=== PATIENT | female | born 1990 ===

== ENCOUNTER 2019-04-20 11:02 | Outpatient (CLI) | payer OTHER ==
[2019-04-20 11:27] VITALS: BP 115/66
--- NOTE | 2019-04-20 14:01 | Ultrasound Report ---
ULTRASOUND BIOPHYSICAL PROFILE ULTRASOUND OB LIMITED INDICATION: post dates TECHNIQUE: Transabdominal ultrasound imaging. COMPARISON: None FINDINGS: breathing movement = 2 Gross body movement = 2 tone = 2 Qualitative amniotic fluid volume = 2 Total biophysical score = 8/8 Amniotic fluid index is 8.8 cm. Presentation is cephalic. heart rate is 151 beats per minute. IMPRESSION: biophysical profile equals 8/8. Cephalic presentation. Signer Name: Qasim Song Jr, MD Signed: 04/20/2019 1:56 PM Workstation Name: [id number]
== END 2019-04-20 12:50 | disposition home or self-care (01) ==
LOC: TRG 11:02
PROVIDERS: ATTEND Obstetrics & Gynecology
DX: O47.1 False labor at or after 37 completed weeks of gestation (principal); Z3A.41 41 weeks gestation of pregnancy
CPT/HCPCS: 59025; 76815; 76819

== ENCOUNTER 2019-04-21 12:16 | Outpatient (CLI) | payer OTHER ==
[2019-04-21 13:03] VITALS: BP 113/69
== END 2019-04-21 15:36 | disposition home or self-care (01) ==
LOC: TRG 12:16
PROVIDERS: ATTEND Obstetrics & Gynecology
DX: O47.1 False labor at or after 37 completed weeks of gestation (principal); Z3A.41 41 weeks gestation of pregnancy
CPT/HCPCS: 59025

== ENCOUNTER 2019-04-21 21:08 | Inpatient (IN) | payer OTHER ==
[2019-04-21] MEDS ORDERED: BRETHINE SUB-Q PRN (23:23)
--- NOTE | 2019-04-21 23:31 | History and Physical Report ---
History of Present Illness Date of examination: 04/21/19 Date of admission: 04/21/19 21:08 Chief complaint: Labor History of present illness: 28 year old female presents in active labor. Patient received care at [facility] and records are available. LMP 06/19/18. EDC 04/12/19. significant for the following: chlamydia (treated and cured, DOMINIQUE negative 12/29/18), UTI (treated with Keflex). labs are as follows:A+, antibody screen negative, rubella immune, hepatitis B surface antigen negative, RPR nonreactive, HIV negative, CT positive/negative, GC negative/negative, GBS negative, quad screen negative, glucose challenge WNL. 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 denies: abnormal PAP smear, gonorrhea, hepatitis B, hepatitis C, herpes, HIV, syphilis, trichomonas Family/Genetic History: none Social history: , lives with family, full code. denies: smoking, alcohol abuse, prescription drug abuse, IV drug use - Obstetrical History Expected Date of Delivery: 04/12/19 Actual Gestation: 41 Week(s) 2 Day(s) : 1 Para: 0 Hx # Term Pregnancies: 0 Number of Pregnancies: 0 Spontaneous Abortions: 0 Induced : 0 Number of Living Children: 0 Medications and Allergies Allergies Allergy/AdvReac Type Severity Reaction Status Date / Time No Known Allergies Allergy Verified 04/20/19 11:11 Review of Systems All systems: negative (contractions) - Vital Signs Vital signs: Vital Signs Pulse BP 85 118/71 04/21/19 21:49 04/21/19 21:49 Temp Pulse Resp BP Pulse Ox 75 123/73 04/21/19 23:12 04/21/19 23:12 - Physical Exam Abdomen: Positive: normal appearance, soft. Negative: distention, tenderness, guarding, rigidity Genitourinary (Female): Positive: normal external genitalia, normal perenium. Negative: perineal/vulvar lesions (no lesions seen on careful exam with bright light upon admission) Vagina: Positive: normal moisture Uterus: Positive: enlarged (gravid) Anus/Rectum: Positive: normal perianal skin Extremities: Positive: normal - Obstetrical FHR: category 1 Cervical Dilatation: 4 Cervical Effacement Percentage: 90 station: -3 Uterine Contraction Pattern: Regular Uterine Contraction Intensity: Moderate Results All other labs normal. Assessment and Plan A: at 41 weeks, 2 days gestation. Active labor, late term gestation. GBS negative. P: Admit. Continuous EFM. Anticipate vaginal .
[2019-04-21] MEDS ORDERED: PITOCin/NS 20 UNIT/1000ML DRIP 20 UNITS/1,000 ML BAG IV SCH (23:45)
[2019-04-22 00:25] LABS: Hemoglobin 11.8 gm/dl (10.1-14.3); Mean Corpuscular HGB Conc 33 % (30-34); Mean Corpuscular Volume 91 fl (79-97); Platelet Count 228 K/mm3 (140-440); Red Blood Count 3.97 M/mm3 (3.65-5.03); Red Cell Distribution Width 14.7 % (13.2-15.2)
[2019-04-22] MEDS: SUBLIMAZE IV PRN ×3 (01:11→08:04)
[2019-04-22] MEDS: LACTATED RINGERS 1,000 ML IV SCH ×3 (01:13→09:02)
[2019-04-22] MEDS ORDERED: ZOFRAN IV ONE (08:00)
[2019-04-22] MEDS ORDERED: NACL 0.9% 1000 ML 1,000 ML VG SCH (08:00)
--- NOTE | 2019-04-22 08:04 | Event Note ---
Date: 04/22/19 Patient is awaiting epidural. Cervix is 5-6/95/-1. IUPC and FSE placed. Amnioinfusion ordered due to variable FHR decelerations. Oxygen per face mask at 10 LPM and lateral positioning of patient have been instituted. Patient is receiving IV fluid bolus. FHR baseline is normal and variability is moderate. Uterus palpates soft between contractions.
[2019-04-22] MEDS ORDERED: TYLENOL PO ONE (09:04)
[2019-04-22] MEDS ORDERED: NARCAN 2 MG/2 ML IV PRN (09:08)
--- NOTE | 2019-04-22 09:09 | Anesthesia Consultation ---
Anesthesia Consult and Med Hx Date of service: 04/22/19 - Airway Anesthetic Teeth Evaluation: Good ROM Head & Neck: Adequate Mental/Hyoid Distance: Adequate Mallampati Class: Class II Intubation Access Assessment: Probably Good - Pulmonary Exam CTA: Yes - Cardiac Exam Cardiac Exam: RRR - Pre-Operative Health Status ASA Pre-Surgery Classification: ASA2 Proposed Anesthetic Plan: Epidural - Pulmonary Hx Asthma: No COPD: No Hx Pneumonia: No - Cardiovascular System Hx Hypertension: No - Central Nervous System Hx Seizures: No Hx Psychiatric Problems: No - Endocrine Hx Renal Disease: No Hx End Stage Renal Disease: No Hx Hypothyroidism: No Hx Hyperthyroidism: No - Hematic Hx Anemia: No Hx Sickle Cell Disease: No - Other Systems Hx Alcohol Use: No
--- NOTE | 2019-04-22 09:39 | Event Note ---
Date: 04/22/19 Patient has epidural and is now comfortable. SVE 6-7/100/-1. Pitocin ordered for augmentation of labor. Patient has FSE and IUPC in place. Receiving amnioinfusion. Variable FHR decelerations have resolved.
[2019-04-22] MEDS ORDERED: PITOCin/NS 30 UNIT/500ML 30 UNITS/500 ML BAG IV SCH (10:00)
[2019-04-22] MEDS ORDERED: fentaNYL-BUPIV 2 MCG/ML-0.125% 200 MCG/100 ML BAG EPIDURAL SCH ×2 (10:00→15:00)
[2019-04-22] MEDS ORDERED: AMPICILLIN/NS 2 GM/100 ML 2 GM/100 ML BAG IV ONE (10:00)
--- NOTE | 2019-04-22 11:36 | Event Note ---
Date: 04/22/19 Pitocin turned off due to late FHR decelerations. Moderate variability. SVE unchanged. Informed Dr. Simons that Pitocin was turned off due to late decelerations. Dr. Simons states he wants to perform a section. Informed patient and nurse re: Dr. Simons's decision to perform a section.
[2019-04-22] MEDS ORDERED: PEPCID IV ONE (12:00)
[2019-04-22] MEDS ORDERED: REGLAN IV ONE (12:00)
[2019-04-22] MEDS ORDERED: ANCEF/STERILE WATER 2 GM/20 ML 2 GM/20 ML SYRINGE IV NR (12:00)
[2019-04-22] MEDS ORDERED: PITOCin/NS 20 UNIT/1000ML DRIP 20 UNITS/1,000 ML BAG IV SCH ×2 (12:00→15:00)
[2019-04-22] MEDS ORDERED: LACTATED RINGERS 1,000 ML IV SCH (12:00)
[2019-04-22] MEDS ORDERED: BICITRA PO ONE (12:00)
--- NOTE | 2019-04-22 12:41 | Anesthesia Day of Surgery ---
Anesthesia Day of Surgery - Day of Surgery Patient Examined: Yes Patient H&P Reviewed: Yes Patient is NPO: Yes
[2019-04-22] MEDS ORDERED: WATER FOR IRRIG STERILE IR ONE ×2 (13:20)
[2019-04-22] MEDS ORDERED: NACL 0.9% IR ONE ×2 (13:20)
[2019-04-22] MEDS ORDERED: XYLOCAINE MPF 2% ONE (13:31)
[2019-04-22] MEDS ORDERED: SODIUM BICARBONATE IV ONE (13:31)
[2019-04-22] MEDS ORDERED: ZOFRAN ONE (13:31)
[2019-04-22] MEDS ORDERED: AMPICILLIN/NS 1 GM/50 ML 1 GM/50 ML BAG IV SCH (14:00)
--- NOTE | 2019-04-22 14:12 | Event Note ---
Date: 04/22/19 Saw patient who arrived 13 hours earlier at 3cm and now only 5-6 cm and OP. Fetus showing variable decels. O/E: Large fetus and + lbs. Cervix 100% effaced, 5-6cm, OP at 0-2 station. Pelvis inadequate. IMP: Failure to progress, CPD. Plan: For delivery.
[2019-04-22] MEDS ORDERED: ZOFRAN IV PRN ×2 (14:17→14:26)
[2019-04-22] MEDS ORDERED: TORADOL IV PRN (14:17)
[2019-04-22] MEDS ORDERED: MORPHINE IV PRN (14:17)
[2019-04-22] MEDS ORDERED: TYLENOL PO PRN (14:17)
[2019-04-22] MEDS ORDERED: NARCAN 0.4 MG/1 ML IV PRN ×2 (14:17→14:26)
[2019-04-22] MEDS ORDERED: TUCKS PAD TP PRN (14:17)
[2019-04-22] MEDS ORDERED: LANSINOH TP PRN (14:17)
[2019-04-22] MEDS ORDERED: PHENERGAN PO PRN (14:26)
[2019-04-22] MEDS ORDERED: NUBAIN IV PRN (14:26)
[2019-04-22] MEDS ORDERED: PHENERGAN PR PRN (14:26)
--- NOTE | 2019-04-22 14:26 | Post Anesthesia Evaluation ---
- Post Anesthesia Evaluation Patient Participated: Yes Airway Patent: Yes Stable Respiratory Function: Yes Nausea/Vomiting: No Temp > 96.8F: Yes Pain Manageable: Yes Adequeate Hydration: Yes Anesthesia Complications: No Block Receding Appropriately: Yes
[2019-04-22] MEDS ORDERED: ANCEF/NS 1 GM/50 ML 1 GM/50 ML BAG IV SCH (15:00)
[2019-04-22] MEDS ORDERED: SODIUM CHLORIDE FLUSH SYRINGE 10 ML IV NR (15:00)
--- NOTE | 2019-04-22 15:56 | Operative Report ---
Operative Report Operative Report: Date of surgery: 04/22/2019 Preoperative diagnoses: Failure to progress, large fetus, cephalopelvic disproportion Postoperative diagnoses: The same. Operation: delivery Surgeon:Antolin Simons MD Electric Organ Checker: Barbara Linda CRNA Anesthesia: Spinal block Estimated blood loss: 1000 mL Complications: None Findings: There was a live baby girl in occiput posterior position, weight 9 lbs. 3 oz. in the false pelvis. Both ovaries and tubes were normal. The uterus was an unremarkable gravid structure Procedure in detail: The patient was taken to the operating room and given a spinal block. Patient was placed in the straight supine position and a Edwards catheter was inserted. The patient was prepped in the abdomen. The drapes were placed. A timeout was done. With the go ahead from the clinical laboratory technologist, a Pfannenstiel incision was made. This incision was carried across the subcutaneous layer to the fascia which was also divided transversely. The recti abdominis muscle flaps were stripped from the fascia using a combination of blunt and sharp dissections. The muscles were in the midline to gain access to the anterior parietal peritoneum which was divided after excluding any underlying viscera. The access to the peritoneal cavity was then widened by manual stretching. The bladder blade was applied. The utero vesicle peritoneal flap was divided transversely allowing the bladder to be displaced caudally. The uterine incision was placed in the lower segment transversely. The uterine incision was carried to the decidual layer. The uterine incision was extended on both sides using the bandage scissors. The amniotic sac was ruptured with clear fluid. The head was lifted out of the falls maternal pelvis and delivered through the incision using fundal pressure. The airways were bulb suctioned beginning with the mouth. Continuing fundal pressure combined with traction on the mandibular processes of the jaw delivered the rest of the baby. The umbilical cord was double clamped and divided. The baby was carefully transferred to the pediatric team. The placenta was manually removed from the uterine cavity. The uterine cavity was explored and was empty of any placental remnants. The uterine incision was repaired in 2 layers with #1 Vicryl. The surgical line on the uterus was hemostatic. Blood and clots were cleared from the peritoneal cavity. The anterior parietal peritoneum was repaired with #1 Vicryl. The fascia was repaired with #1 Vicryl. The subcutaneous layer was made hemostatic using the Bovie before the skin was closed subcuticularly with 4-0 Vicryl. There were no complications. The estimated blood loss was 1000 mL. All sponges and instrument counts were correct. Patient was safely transferred to the recovery room.
[2019-04-22] MEDS: ANCEF/NS 1 GM/50 ML 1 GM/50 ML BAG IV SCH (20:45)
[2019-04-23] MEDS ORDERED: LACTATED RINGERS 1,000 ML IV SCH (01:00)
[2019-04-23] MEDS: NORCO 5/325 PO PRN ×2 (01:05→06:08)
[2019-04-23] MEDS: ANCEF/NS 1 GM/50 ML 1 GM/50 ML BAG IV SCH (05:33)
[2019-04-23 05:52] LABS: Hematocrit 29.7 % (30.3-42.9)
[2019-04-23] MEDS: FEOSOL PO SCH (13:05)
[2019-04-23] MEDS: IBUPROFEN PO PRN (13:05)
--- NOTE | 2019-04-23 18:20 | Progress Note ---
Assessment and Plan A: day 1 S/P primary LTCS. Anemia secondary to and blood loss. P: Iron supplementation. Encouraged ambulation. Subjective - Subjective Date of service: 04/23/19 Principal diagnosis: /postop day 1 S/P primary LTCS Interval history: /postop day 1 S/P primary LTCS. Doing well. No complaints. Patient reports: appetite normal, voiding normally, pain well controlled, flatus, ambulating normally, no dizzy ambulation, no nauseated : doing well Objective - Vital Signs Latest vital signs: Vital Signs Temp Pulse Resp BP BP Pulse Ox 04/23/19 15:55 98 F 88 20 111/48 04/23/19 13:05 16 04/23/19 12:10 98.6 F 91 H 20 106/57 04/23/19 08:20 98.2 F 81 20 116/53 04/23/19 07:08 18 04/23/19 06:08 18 04/23/19 05:14 97.8 F 81 18 104/57 95 04/23/19 02:05 18 04/23/19 01:10 97.9 F 96 H 18 104/56 95 04/23/19 01:05 18 04/22/19 22:54 18 04/22/19 21:54 18 04/22/19 21:12 100.3 F H 104 H 18 106/49 96 04/22/19 20:48 18 04/22/19 20:18 18 Intake and Output 04/23/19 04/23/19 04/23/19 07:59 15:59 23:59 Intake Total 0 760 Output Total 1500 1000 Balance -1500 -240 Intake: Oral 0 760 Intake, Free Water 0 Output: Urine 1500 1000 Indwelling Catheter 1500 Void 1000 Other: Total, Intake Amount 0 120 Total, Output Amount 300 600 # Voids Indwelling Catheter 1 Void 3 - Exam Cardiovascular: Present: Regular rate, Normal S1, Normal S2, No murmurs Lungs: Present: Clear to auscultation Abdomen: Present: normal appearance, soft, normal bowel sounds. Absent: distention, tenderness, guarding, rigidity Uterus: Present: normal, firm, fundal height below umbilicus. Absent: bogginess, tenderness Extremities: Present: normal. Absent: tenderness, edema Incision: Present: normal, dry, intact, dressed - Labs Labs: Abnormal lab results 04/23/19 Range/Units 05:14 Hgb 10.0 L (10.1-14.3) gm/dl Hct 29.7 L D (30.3-42.9) %
[2019-04-24] MEDS: IBUPROFEN PO PRN ×3 (00:02→23:07)
[2019-04-24] MEDS: FEOSOL PO SCH (10:44)
--- NOTE | 2019-04-24 10:44 | Progress Note ---
Assessment and Plan - Patient Problems (1) S/P primary low transverse Current Visit: Yes Status: Acute Plan to address problem: POD 2 - stable Continue routine postop orders Continue liquid diet until pt reports flatus Abdominal binder ordered Anticipate discharge in 24 hours (2) Anemia due to blood loss, acute Current Visit: Yes Status: Acute Plan to address problem: Asymptomatic Continue iron therapy Subjective - Subjective Date of service: 04/24/19 Principal diagnosis: POD #2; s/p Primary LTCS Interval history: see H&P, Event Notes, Operative Report and PP/FORESTER AIDE Progress Notes Patient reports: appetite normal, voiding normally, pain well controlled, ambulating normally, no dizzy ambulation, no flatus, no bowel movement [place]: doing well Objective - Vital Signs Latest vital signs: Vital Signs Temp Pulse Resp BP 04/24/19 00:00 98.8 F 74 18 102/75 04/23/19 15:55 98 F 88 20 111/48 04/23/19 13:05 16 04/23/19 12:10 98.6 F 91 H 20 106/57 Intake and Output 04/23/19 04/24/19 04/24/19 23:59 07:59 15:59 Intake Total 200 Balance 200 Intake: Oral 200 Other: Total, Intake Amount 200 - Exam Abdomen: Present: normal appearance, soft Vulva: both: normal Uterus: Present: normal, firm, fundal height at umbilicus Extremities: Present: normal Incision: Present: normal, dry, intact, dressed Comments: scant lochia
[2019-04-25] MEDS ORDERED: BOOSTRIX IM ONE (00:40)
--- NOTE | 2019-04-25 09:58 | Progress Note ---
Assessment and Plan - Patient Problems (1) S/P primary low transverse Current Visit: Yes Status: Acute Plan to address problem: Continue routine PP orders Dulcolax 10 mg po today Increase water intake Ambulate in room and in hallways Anticipate d/c home within 24 hrs (2) Anemia due to blood loss, acute Current Visit: Yes Status: Acute Plan to address problem: Asymptomatic Continue daily oral iron supplementation as ordered Increase iron rich foods into diet Subjective - Subjective Date of service: 04/25/19 Principal diagnosis: POD #3; s/p Primary LTCS Interval history: See admission H & P, OB operative report and PP progress reports Patient reports: appetite normal, voiding normally, pain well controlled (with medications), flatus, ambulating normally, no bowel movement [place]: doing well () Objective - Vital Signs Latest vital signs: Vital Signs Temp Pulse Resp BP BP Pulse Ox 04/25/19 00:57 97.9 F 80 18 92/44 98 04/24/19 16:44 98 F 73 18 97/44 Intake and Output 04/24/19 04/25/19 04/25/19 23:59 07:59 15:59 Intake Total 720 480 Balance 720 480 Intake: Oral 720 480 Other: Total, Intake Amount 240 240 # Voids Void 1 - Exam Breasts: Present: normal Cardiovascular: Present: Regular rate Lungs: Present: Normal air movement Abdomen: Present: distention, normal bowel sounds (slow) Uterus: Present: firm (@U) Extremities: Present: normal Deep Tendon Reflex Grade: Normal +2 Incision: Present: dry, intact (steri-strips intact)
[2019-04-25] MEDS ORDERED: DULCOLAX PO SCH (10:00)
[2019-04-25] MEDS ORDERED: DULCOLAX PR PRN (10:15)
[2019-04-25] MEDS: FEOSOL PO SCH (11:44)
[2019-04-26] MEDS: IBUPROFEN PO PRN (09:01)
[2019-04-26] MEDS: FEOSOL PO SCH (09:03)
--- NOTE | 2019-04-26 12:01 | Progress Note ---
Assessment and Plan A: POD #4 Stable P: Follow Routine PostOp Orders D/C home today RTO in One Week Subjective - Subjective Date of service: 04/26/19 Principal diagnosis: POD #3; s/p Primary LTCS Patient reports: appetite normal, voiding normally, pain well controlled, flatus, bowel movement, ambulating normally [place]: doing well, bottle feeding (and ) Objective - Vital Signs Latest vital signs: Vital Signs Temp Pulse Resp BP BP Pulse Ox 04/26/19 07:55 97.8 F 58 L 20 99/52 04/25/19 23:39 98.5 F 74 18 101/47 97 04/25/19 15:48 97.5 F L 70 20 97/65 Intake and Output 04/25/19 04/26/19 04/26/19 22:59 06:59 14:59 Intake Total 240 120 120 Output Total 0 Balance 240 120 120 Intake: Oral 240 120 120 Output: Urine 0 Indwelling Catheter 0 Other: Total, Intake Amount 120 120 120 Total, Output Amount 0 # Voids Void 1 1 1 - Exam Breasts: Present: normal Cardiovascular: Present: Regular rate Lungs: Present: Clear to auscultation, Normal air movement Abdomen: Present: normal appearance, soft, normal bowel sounds Uterus: Present: normal, firm, fundal height below umbilicus Extremities: Present: normal Incision: Present: normal, dry, intact
--- NOTE | 2019-04-26 12:03 | Discharge Summary ---
Providers - Providers Date of Admission: 04/21/19 21:08 Date of discharge: 04/26/19 Attending physician: MARIA ESTHER ARREDONDO MD Primary care physician: MARIA ESTHER ARREDONDO MD Hospitalization Reason for admission: induction of labor Delivery: Procedure: primary low transverse Episiotomy: none Laceration: none Incision: normal, dry, intact Other procedures: none complications: none Discharge diagnosis: IUP at term delivered [place] baby: female Condition at discharge: Good Disposition: DC-01 TO HOME OR SELFCARE Plan - Discharge Medications Prescriptions: HYDROcodone/APAP 5-325 [[place] 5/325] 1 - 2 each PO Q4HR PRN #30 tablet PRN Reason: Pain - Provider Discharge Summary Activity: routine, no sex for 6 weeks, no heavy lifting 4 weeks, no strenuous exercise Diet: routine Instructions: routine Additional instructions: [] Smoking cessation referral if applicable(refer to patient education folder for contact #) [] Refer to [facility]'s [facility] Booklet Call your doctor immediately for: * Fever > 100.5 * Heavy vaginal bleeding ( >1 pad per hour) * Severe persistent headache * Shortness of breath * Reddened, hot, painful area to leg or breast * Drainage or odor from incision. * Keep incision clean and dry at all times and follow doctor's instructions regarding bathing/showering - Follow up plan Follow up: MARIA ESTHER ARREDONDO MD [Primary Care Provider] - 7 Days
[2019-04-26 17:19] VITALS: BP 109/66
== END 2019-04-26 18:25 | disposition home or self-care (01) | DRG 787 ==
LOC: LD 21:08 → OB 04-22 17:30
PROVIDERS: ADMIT Obstetrics & Gynecology; ATTEND Obstetrics & Gynecology
PROC: 10D00Z1 Extraction of Products of Conception, Low, Open Approach (ICD-10-PCS; principal; 2019-04-22)
PROC: 3E0234Z Introduction of Serum, Toxoid and Vaccine into Muscle, Percutaneous Approach (ICD-10-PCS; 2019-04-25)
DX: O75.0 Maternal distress during labor and delivery (principal); D62 Acute posthemorrhagic anemia; Z3A.41 41 weeks gestation of pregnancy; Z37.0 Single live birth; Z23 Encounter for immunization; O33.9 Maternal care for disproportion, unspecified; O90.81 Anemia of the puerperium
CPT/HCPCS: 36415; 85014; 85018; 85027; 86592; 86850; 86900; 86901; 90471; 90715; G0378; A6250; J0290; J0690; J2270; J2405; J2590; J2765; J3010; J7030; J7120